=== PATIENT | female | born 1975 | race Caucasian/White ===

== ENCOUNTER 2023-05-14 17:53 | Inpatient (IN) ==
[2023-05-14] MEDS ORDERED: SODIUM CHLORIDE 0.9% 1000ML 1,000 ML IV SCH (19:15)
[2023-05-14] MEDS ORDERED: MAGNESIUM SULFATE / D5W 1 GM/100 ML BAG IV STA ×2 (19:30→20:23)
[2023-05-14 19:45] LABS: Basophils # (auto) 0.05 K/uL (0-0.2); Basophils % (auto) 0.8 %; Eosinophils # (auto) 0.05 K/uL (0-0.50); Eosinophils % (auto) 0.8 %; Hematocrit (blood only) 31.9 % (37.0-47.0); Hemoglobin 11.3 g/dl (12.0-16.0); Immature Granulocytes # (auto) 0.01 K/uL (0.01-0.20); Immature Granulocytes % (auto) 0.2 %; Lymphocytes # (auto) 1.35 K/uL (1.2-3.4); Lymphocytes % (auto) 22.4 %; Mean Corpuscular Hemoglobin 33.4 pg (25.0-34.0); Mean Corpuscular Hgb Conc 35.4 g/dL (32.0-36.0); Mean Corpuscular Volume 94.4 fL (80.0-100.0); Mean Platelet Volume 9.9 fL (9.4-12.4); Neutrophils # (auto) 3.66 K/uL (1.40-6.50); Neutrophils % (auto) 60.8 %; Platelet Count 152 K/uL (130-400); RDW Coefficient of Variation 11.9 % (11.5-14.5); RDW Standard Deviation 41.2 fL (36.4-46.3); Red Blood Count 3.38 M/uL (4.20-5.40); White Blood Count 6.02 K/ul (4.8-10.8)
[2023-05-14 20:02] LABS: Albumin Globulin Ratio 1.6 (0.9-2); Albumin Level 4.5 gm/dl (3.4-5.0); BUN Creatinine Ratio 15.8 (10-20); Bilirubin,Total 1.3 mg/dl (0.2-1.0); Calcium 9.1 mg/dl (8.6-10.3); Creatinine Clr Calc Pharmacy 53.9 ml/min; Est GFR (African American) 76.2 ml/min; Est GFR (Non-African American) 65.8 ml/min; Globulin 2.8 gm/dl (2.5-4.0); Magnesium 1.5 mg/dl (1.7-2.4); Potassium 3.1 mmol/L (3.5-5.1); Total Protein 7.3 gm/dl (6.0-8.3)
[2023-05-14] MEDS ORDERED: POTASSIUM CHLORIDE CRTAB 20 MEQ TABCR PO STA (20:09)
[2023-05-14 20:17] LABS: Prothrombin Time 11.3 Seconds (9.0-12.0)
[2023-05-14] MEDS ORDERED: OPTIRAY 320 100ml IV ONE (20:30)
--- NOTE | 2023-05-14 20:58 | Emergency Department Note ---
Impression & Plan Hallucinations, Alcohol withdrawal, Alcohol abuse, Hypokalemia, Hypomagnesemia, Prolonged QT interval ED Provider Note ED Provider Note NAME: WILL BOLIVAR AGE:48 SEX: Female : 1975 ARRIVES VIA: EMS INFORMANT: Patient ED PROVIDER(s): Janeth Berg DO CHIEF COMPLAINT: Hallucination HPI: This is a 48-year-old female sent from [facility] rehab facility for evaluation of hallucinations and possible mental health admission. Patient has been at [facility] for several days for rehab from alcohol abuse. Staff there state patient began having hallucinations but these seem more pronounced in the evening and at night. Patient states she has a prior history of hallucinations from alcohol withdrawal as previously medically admitted. No history of withdrawal related seizures. Patient does not know what medications she is currently being given there. Patient did have active hallucinations during my interview with the patient although she does answer most questions appropriately. Patient denied any fall, and denies any recent illness. She denies SI and HI, and does admit to depression. PAST MEDICAL HISTORY:See Below PAST SURGICAL HISTORY:See Below FAMILY HISTORY:See Below SOCIAL HISTORY:See Below HOME MEDICATIONS:See Below ALLERGIES:See Below VITALS:See Below PHYSICAL EXAMINATION: GENERAL: alert, well appearing, well nourished, no distress, non-toxic EYE EXAM: normal conjunctiva, PERRL and EOM's grossly intact OROPHARYNX: no exudate, no erythema, lips, buccal mucosa, and tongue normal and mucous membranes are moist NECK: supple, no nuchal rigidity, no adenopathy, non-tender LUNGS: Clear to auscultation. Normal chest wall mechanics, no w/r/r HEART: no murmurs, S1 normal and S2 normal ABDOMEN: abdomen soft, non-tender, normo-active bowel sounds, no masses, no rebound or guarding. BACK: Back is symmetrical on inspection and there is no deformity, no midline tenderness, no CVA tenderness. SKIN: no rashes, petechiae, orbruising UPPER EXTREMITIES: upper extremities are grossly normal. FROM, nml pulses b/l. LOWER EXTREMITIES: No pitting edema. FROM, nml pulses b/l. NEURO EXAM: Normal sensorium although intermittently appears to be hallucinating, cranial nerves II-XII grossly intact, normal speech, no facial droop,nogross weakness of arms, no gross weakness of legs. Gross sensation intact. Tremors noted. Vital Signs: reviewed and remarkable Differential Diagnosis: Alcohol intoxication, alcohol withdrawal, DTs, electrolyte abnormality, VINICIO, ICH, occult fracture, medication ADR, as well as others were considered MEDICAL DECISION MAKING: This is a 48-year-old female with a history of alcohol abuse who was referred here from [facility] due to concern for increasing hallucinations despite treatment for her alcohol withdrawal at their facility. She was afebrile and vital signs stable and was noted to be having active hallucinations while here. No significant hypertension, tachycardia, or diaphoresis. She did have obvious tremors. Patient denied SI and HI and given her mention that she has had hallucinations previously during alcohol withdrawal, we proceeded with a medical evaluation first. Labs are drawn and sent, IV established, EKG performed at bedside and interpreted by me and patient started on IV fluids and monitored on telemetry. Patient was given IV magnesium after noting a prolonged QT on the EKG. Her magnesium in the labs was ultimately low as was her potassium. She was given additional potassium repletion. Patient given IV Valium with some improvement in her tremors and she was able to rest. Patient was sent for CT head, face, and abdomen and pelvis after finding several contusions on my exam that the patient cannot otherwise explain. These were reassuring. [facility] was uncomfortable treating her symptoms at this time as they felt they were worsening despite their usual medications. I suspect her symptoms are more likely related to alcohol withdrawal then an acute mental health crisis requiring inpatient psychiatric treatment. Patient discussed with [facility] for additional inpatient medical treatment for acute alcohol withdrawal. Consultation(s): 2137: Discussed with Dr. Taveras. ER Treatment Provided: See below Diagnostics Interpreted By Me: -ECG: Normal sinus at 70, normal axis, normal QRS, prolonged QT, nonspecific ST/T wave change -Cardiac Monitoring: An order was placed for continuous cardiac monitoring. The monitor shows a rate of 60 with normal sinus rhythm. -Laboratory studies: As stated above and show below. -Imaging studies: [] Triage Nursing Note Reviewed Prior/Outside Records Reviewed Past Med/Surg History Social History Smoking Status: Never smoker Feels Safe at Home: Yes Allergies Allergies Allergy/AdvReac Type Severity Reaction Status Date / Time celecoxib [From Celebrex] Allergy Rash Verified 05/14/23 18:56 Home Meds Home Medications Medication Instructions Recorded Confirmed acetaminophen 650 mg tablet 650 mg PO QID pain 05/14/23 05/14/23 clonidine HCl 0.1 mg tablet 0.1 mg PO TID PRN Anxiety 05/14/23 05/14/23 cyanocobalamin (vitamin B-12) 1,000 mcg PO DAILY 05/14/23 05/14/23 1,000 mcg tablet (Vitamin B-12) diazepam 10 mg tablet (Valium) 10 mg PO DIRECTED PRN 05/14/23 05/14/23 Withdrawal Symptoms dicyclomine 20 mg tablet 20 mg PO TID PRN Abdominal 05/14/23 05/14/23 Discomfort diphenhydramine HCl 25 mg capsule 25 mg PO Q6 PRN as directed 05/14/23 05/14/23 (Benadryl) folic acid 1 mg tablet 1 mg PO DAILY 05/14/23 05/14/23 haloperidol 2 mg tablet 1 mg PO TID 05/14/23 05/14/23 hydroxyzine pamoate 50 mg capsule 50 mg PO TID PRN Anxiety 05/14/23 05/14/23 (Vistaril) ibuprofen 600 mg tablet 600 mg PO DAILY PRN Pain 05/14/23 05/14/23 melatonin 5 mg tablet 5 mg PO HS PRN Sleep 05/14/23 05/14/23 multivitamin See Rx Instructions .Route .COMPLEX 05/14/23 05/14/23 norethindrone (contraceptive) 0.35 0.5 mg PO DAILY 05/14/23 05/14/23 mg tablet ondansetron HCl 8 mg tablet 8 mg PO TID PRN Nausea 05/14/23 05/14/23 pantoprazole 40 mg tablet,delayed 40 mg PO DAILY 05/14/23 05/14/23 release (Protonix) sertraline 50 mg tablet (Zoloft) 50 mg PO DAILY 05/14/23 05/14/23 thiamine HCl (vitamin B1) 100 mg 100 mg PO DAILY 05/14/23 05/14/23 tablet (Vitamin B-1) Results & Data (ED) Vital Signs Vital Signs - 24 hr 05/14/23 18:02 05/14/23 19:36 05/14/23 21:00 Temperature 36.7 C Temperature Source Skin Pulse Rate 85 67 Pulse Rate [Right Apical] 74 Pulse Rhythm Regular Pulse Rhythm [Right Apical] Pulse Strength Normal Respiratory Rate 20 16 Respiratory Effort / Characteristics Non-Labored Spontaneous Non-Labored Spontaneous Respiratory Depth Normal Normal Respiratory Pattern Regular Regular Blood Pressure 100/65 Blood Pressure [Right Arm] Blood Pressure Mean 76 Blood Pressure Mean [Right Arm] Pulse Oximetry 94 95 Oxygen Delivery Method Room Air Room Air Sepsis Recent Fever Within 48 Hours No Sepsis New/Unexplained Change in Mental Status N/A Sepsis Action Taken by Nursing No Action Required 05/14/23 21:28 05/14/23 23:30 05/14/23 23:56 Temperature Temperature Source Pulse Rate 58 L Pulse Rate [Right Apical] 70 Pulse Rhythm Pulse Rhythm [Right Apical] Regular Pulse Strength Respiratory Rate 17 Respiratory Effort / Characteristics Respiratory Depth Normal Respiratory Pattern Blood Pressure Blood Pressure [Right Arm] 118/83 113/74 Blood Pressure Mean Blood Pressure Mean [Right Arm] 94 87 Pulse Oximetry 97 Oxygen Delivery Method Room Air Sepsis Recent Fever Within 48 Hours Sepsis New/Unexplained Change in Mental Status Sepsis Action Taken by Nursing Laboratory Data 05/14/23 19:20 05/14/23 19:20 Lab Results 05/14/23 05/14/23 05/14/23 Range/Units 19:20 19:20 19:20 WBC 6.02 (4.8-10.8) K/ul RBC 3.38 L (4.20-5.40) M/uL Hgb 11.3 L (12.0-16.0) g/dl Hct 31.9 L (37.0-47.0) % MCV 94.4 (80.0-100.0) fL MCH 33.4 (25.0-34.0) pg MCHC 35.4 (32.0-36.0) g/dL RDW Std Deviation 41.2 (36.4-46.3) fL RDW Coeff of Edwina 11.9 (11.5-14.5) % Plt Count 152 (130-400) K/uL MPV 9.9 (9.4-12.4) fL Immature Gran % (Auto) 0.2 % Neut % (Auto) 60.8 % Lymph % (Auto) 22.4 % [place] % (Auto) 15.0 % Eos % (Auto) 0.8 % Baso % (Auto) 0.8 % Neut # (Auto) 3.66 (1.40-6.50) K/uL Lymph # (Auto) 1.35 (1.2-3.4) K/uL [place] # (Auto) 0.90 H (0.11-0.59) K/uL Eos # (Auto) 0.05 (0-0.50) K/uL Baso # (Auto) 0.05 (0-0.2) K/uL Immature Gran # (Auto) 0.01 (0.01-0.20) K/uL PT 11.3 (9.0-12.0) Seconds INR 1.0 (0.9-1.1) Sodium 133 L (136-145) mmol/L Potassium 3.1 L (3.5-5.1) mmol/L Chloride 99 (98-107) mmol/L Carbon Dioxide 21 (21-32) mmol/L Anion Gap 13 H (3-11) BUN 16 (6-23) mg/dl Creatinine 1.01 (0.6-1.2) mg/dl Est Cr Clr Drug Dosing 53.9 ml/min Est GFR ( Amer) 76.2 ml/min Est GFR (Non-Af Amer) 65.8 ml/min BUN/Creatinine Ratio 15.8 (10-20) Glucose 80 (70-99(Fasting)) mg/dl Calcium 9.1 (8.6-10.3) mg/dl Magnesium 1.5 L (1.7-2.4) mg/dl Total Bilirubin 1.3 H (0.2-1.0) mg/dl AST 75 H (13-39) U/L ALT 37 (7-52) U/L Alkaline Phosphatase 34 (34-104) U/L Total Protein 7.3 (6.0-8.3) gm/dl Albumin 4.5 (3.4-5.0) gm/dl Globulin 2.8 (2.5-4.0) gm/dl Albumin/Globulin Ratio 1.6 (0.9-2) Lipase 23 (11-82) U/L TSH (0.300-4.500) uIu/ml Urine Color Urine Appearance (Clear) Urine pH (4.5-7.5) Ur Specific [place] (1.000-1.030) Urine Protein (Negative) Urine Glucose (UA) (Negative) Urine Ketones (Negative) Urine Blood (Negative) Urine Nitrite (Negative) Urine Bilirubin (Negative) Urine Urobilinogen (Negative) Ur Leukocyte Esterase (Negative) Urine WBC (Auto) (0-5) /hpf Urine RBC (Auto) (0-4) /hpf U Hyaline Cast (Auto) (0-5) /lpf U Epithel Cells (Auto) (0-5) /lpf Urine Bacteria (Auto) (Negative) Urine Opiates Screen (Neg) Ur Methadone, Qual (Neg) Urine Barbiturates (Neg) Ur Phencyclidine (PCP) (Neg) U Amphetamin/Meth Scrn (Neg) MDMA (Ecstasy) Screen (Neg) U Benzodiazepines Scrn (Neg) Ur Cocaine Metabolite (Neg) U Marijuana (THC) Screen (Neg) SARS-CoV-2 (PCR) (Negative) Influenza Type A (PCR) (Neg) Influenza Type B (PCR) (Neg) RSV (RT-PCR) (Neg) 05/14/23 05/14/23 05/14/23 Range/Units 19:20 21:38 23:03 WBC (4.8-10.8) K/ul RBC (4.20-5.40) M/uL Hgb (12.0-16.0) g/dl Hct (37.0-47.0) % MCV (80.0-100.0) fL MCH (25.0-34.0) pg MCHC (32.0-36.0) g/dL RDW Std Deviation (36.4-46.3) fL RDW Coeff of Edwina (11.5-14.5) % Plt Count (130-400) K/uL MPV (9.4-12.4) fL Immature Gran % (Auto) % Neut % (Auto) % Lymph % (Auto) % [place] % (Auto) % Eos % (Auto) % Baso % (Auto) % Neut # (Auto) (1.40-6.50) K/uL Lymph # (Auto) (1.2-3.4) K/uL [place] # (Auto) (0.11-0.59) K/uL Eos # (Auto) (0-0.50) K/uL Baso # (Auto) (0-0.2) K/uL Immature Gran # (Auto) (0.01-0.20) K/uL PT (9.0-12.0) Seconds INR (0.9-1.1) Sodium (136-145) mmol/L Potassium (3.5-5.1) mmol/L Chloride (98-107) mmol/L Carbon Dioxide (21-32) mmol/L Anion Gap (3-11) BUN (6-23) mg/dl Creatinine (0.6-1.2) mg/dl Est Cr Clr Drug Dosing ml/min Est GFR ( Amer) ml/min Est GFR (Non-Af Amer) ml/min BUN/Creatinine Ratio (10-20) Glucose (70-99(Fasting)) mg/dl Calcium (8.6-10.3) mg/dl Magnesium (1.7-2.4) mg/dl Total Bilirubin (0.2-1.0) mg/dl AST (13-39) U/L ALT (7-52) U/L Alkaline Phosphatase (34-104) U/L Total Protein (6.0-8.3) gm/dl Albumin (3.4-5.0) gm/dl Globulin (2.5-4.0) gm/dl Albumin/Globulin Ratio (0.9-2) Lipase (11-82) U/L TSH 1.569 (0.300-4.500) uIu/ml Urine Color Urine Appearance (Clear) Urine pH (4.5-7.5) Ur Specific [place] (1.000-1.030) Urine Protein (Negative) Urine Glucose (UA) (Negative) Urine Ketones (Negative) Urine Blood (Negative) Urine Nitrite (Negative) Urine Bilirubin (Negative) Urine Urobilinogen (Negative) Ur Leukocyte Esterase (Negative) Urine WBC (Auto) (0-5) /hpf Urine RBC (Auto) (0-4) /hpf U Hyaline Cast (Auto) (0-5) /lpf U Epithel Cells (Auto) (0-5) /lpf Urine Bacteria (Auto) (Negative) Urine Opiates Screen Neg (Neg) Ur Methadone, Qual Neg (Neg) Urine Barbiturates Neg (Neg) Ur Phencyclidine (PCP) Neg (Neg) U Amphetamin/Meth Scrn Neg (Neg) MDMA (Ecstasy) Screen Neg (Neg) U Benzodiazepines Scrn Pos H (Neg) Ur Cocaine Metabolite Neg (Neg) U Marijuana (THC) Screen Neg (Neg) SARS-CoV-2 (PCR) NEGATIVE (Negative) Influenza Type A (PCR) Negative (Neg) Influenza Type B (PCR) Negative (Neg) RSV (RT-PCR) Negative (Neg) 05/14/23 Range/Units 23:03 WBC (4.8-10.8) K/ul RBC (4.20-5.40) M/uL Hgb (12.0-16.0) g/dl Hct (37.0-47.0) % MCV (80.0-100.0) fL MCH (25.0-34.0) pg MCHC (32.0-36.0) g/dL RDW Std Deviation (36.4-46.3) fL RDW Coeff of Edwina (11.5-14.5) % Plt Count (130-400) K/uL MPV (9.4-12.4) fL Immature Gran % (Auto) % Neut % (Auto) % Lymph % (Auto) % [place] % (Auto) % Eos % (Auto) % Baso % (Auto) % Neut # (Auto) (1.40-6.50) K/uL Lymph # (Auto) (1.2-3.4) K/uL [place] # (Auto) (0.11-0.59) K/uL Eos # (Auto) (0-0.50) K/uL Baso # (Auto) (0-0.2) K/uL Immature Gran # (Auto) (0.01-0.20) K/uL PT (9.0-12.0) Seconds INR (0.9-1.1) Sodium (136-145) mmol/L Potassium (3.5-5.1) mmol/L Chloride (98-107) mmol/L Carbon Dioxide (21-32) mmol/L Anion Gap (3-11) BUN (6-23) mg/dl Creatinine (0.6-1.2) mg/dl Est Cr Clr Drug Dosing ml/min Est GFR ( Amer) ml/min Est GFR (Non-Af Amer) ml/min BUN/Creatinine Ratio (10-20) Glucose (70-99(Fasting)) mg/dl Calcium (8.6-10.3) mg/dl Magnesium (1.7-2.4) mg/dl Total Bilirubin (0.2-1.0) mg/dl AST (13-39) U/L ALT (7-52) U/L Alkaline Phosphatase (34-104) U/L Total Protein (6.0-8.3) gm/dl Albumin (3.4-5.0) gm/dl Globulin (2.5-4.0) gm/dl Albumin/Globulin Ratio (0.9-2) Lipase (11-82) U/L TSH (0.300-4.500) uIu/ml Urine Color Yellow Urine Appearance Clear (Clear) Urine pH 5.5 (4.5-7.5) Ur Specific [place] 1.022 (1.000-1.030) Urine Protein Negative (Negative) Urine Glucose (UA) Negative (Negative) Urine Ketones Negative (Negative) Urine Blood Trace H (Negative) Urine Nitrite Negative (Negative) Urine Bilirubin Negative (Negative) Urine Urobilinogen Negative (Negative) Ur Leukocyte Esterase Negative (Negative) Urine WBC (Auto) 1-5 (0-5) /hpf Urine RBC (Auto) 0-4 (0-4) /hpf U Hyaline Cast (Auto) 0 (0-5) /lpf U Epithel Cells (Auto) 5-10 H (0-5) /lpf Urine Bacteria (Auto) Negative (Negative) Urine Opiates Screen (Neg) Ur Methadone, Qual (Neg) Urine Barbiturates (Neg) Ur Phencyclidine (PCP) (Neg) U Amphetamin/Meth Scrn (Neg) MDMA (Ecstasy) Screen (Neg) U Benzodiazepines Scrn (Neg) Ur Cocaine Metabolite (Neg) U Marijuana (THC) Screen (Neg) SARS-CoV-2 (PCR) (Negative) Influenza Type A (PCR) (Neg) Influenza Type B (PCR) (Neg) RSV (RT-PCR) (Neg) Administered Medications Potassium Chloride/Sodium Chloride (Normal Saline W/20 Meq Kcl) 20 meq in 1,000 mls @ 100 mls/hr IV .Q10H STA; Protocol Stop: 05/15/23 07:50 Last Admin: 05/14/23 22:17 Dose: 75 mls/hr Documented By: KJS Discontinued Medications Diazepam (Diazepam 5 Mg/Ml Inj 10ml Vial) 2 mg IV NOW STA Stop: 05/14/23 19:31 Last Admin: 05/14/23 19:46 Dose: 2 mg Documented By: MERLE Gabapentin (Gabapentin 600 Mg Tab) 1,200 mg PO NOW STA Stop: 05/14/23 22:35 Last Admin: 05/14/23 23:16 Dose: 1,200 mg Documented By: JULY Sodium Chloride (Nss 1000ml) 1,000 mls @ 250 mls/hr IV .Q4H ALDA Stop: 06/13/23 19:14 Last Infusion: 05/14/23 22:16 Dose: 0 mls/hr Documented By: Admin: 05/14/23 19:33 Dose: 250 mls/hr Documented By: MERLE Magnesium Sulfate/Dextrose (Magnesium Sulfate / D5w) 1 gm in 100 mls @ 100 mls/hr IV NOW STA Stop: 05/14/23 20:29 Last Infusion: 05/14/23 20:52 Dose: 0 mls/hr Documented By: Admin: 05/14/23 19:45 Dose: 100 mls/hr Documented By: MERLE Magnesium Sulfate/Dextrose (Magnesium Sulfate / D5w) 1 gm in 100 mls @ 100 mls/hr IV NOW STA Stop: 05/14/23 21:22 Last Infusion: 05/14/23 22:06 Dose: 0 mls/hr Documented By: Admin: 05/14/23 20:56 Dose: 100 mls/hr Documented By: MERLE Thiamine HCl 100 mg/ Syringe 10 mls @ 2 mls/min IV NOW STA Stop: 05/14/23 21:54 Last Admin: 05/14/23 22:13 Dose: 2 mls/min Documented By: MERLE Ioversol (Optiray 320 100ml) 95 ml IV ONCE ONE Stop: 05/14/23 20:31 Last Admin: 05/14/23 20:30 Dose: 95 ml Documented By: NICHOLE Lorazepam (Lorazepam 2 Mg/1 Ml Vial) 3 mg IV ONCE PRN; Protocol PRN Reason: EtOH Withdrawal AWSS Score 10+ Last Admin: 05/14/23 23:17 Dose: 3 mg Documented By: JULY Potassium Chloride (Potassium Chloride Crtab 20 Meq Tabcr) 40 meq PO NOW STA Stop: 05/14/23 20:10 Last Admin: 05/14/23 20:56 Dose: 40 meq Documented By: KJS Imaging Data Radiologist's Impression: Abdomen/Pelvis CT 05/14/23 19:12 Exam(s): CT ABDOMEN + PELVIS With Contrast IV Amt: 95ml EXAM: CT Abdomen and Pelvis With Intravenous Contrast CLINICAL HISTORY: Reason for exam: etoh, left flank pain/bruising. TECHNIQUE: Axial computed tomography images of the abdomen and pelvis with intravenous contrast. CTDI is 11.71 mGy and DLP is 206.82 mGy-cm. Automated exposure control was utilized for the study. A dose lowering technique was utilized adhering to the principles of ALARA. CONTRAST: Patient received 95ml of IV contrast COMPARISON: None. FINDINGS: Lung bases: Bilateral dependent atelectasis. ABDOMEN: Liver: Unremarkable. No mass. Gallbladder and bile ducts: Unremarkable. No calcified stones. No ductal dilation. Pancreas: Unremarkable. No mass. No ductal dilation. Spleen: Unremarkable. No splenomegaly. Adrenals: Unremarkable. No mass. Kidneys and ureters: Unremarkable. No solid mass. No hydronephrosis. Stomach and bowel: Unremarkable. No obstruction. No mucosal thickening. PELVIS: Appendix: No findings to suggest acute appendicitis. Bladder: Unremarkable. No mass. Reproductive: Unremarkable as visualized. ABDOMEN and PELVIS: Intraperitoneal space: Unremarkable. No free air. No significant fluid collection. Bones/joints: No acute fracture. No dislocation. Soft tissues: Unremarkable. Vasculature: Unremarkable. No abdominal aortic aneurysm. Lymph nodes: Unremarkable. No enlarged lymph nodes. IMPRESSION: No acute traumatic abnormality in the abdomen or pelvis. Electronically signed by: Daryl Jackson MD 05/14/23 21:[address] 05/14/23 19:12 Exam(s): CT FACIAL Without Contrast EXAM: CT Maxillofacial Without Intravenous Contrast CLINICAL HISTORY: Reason for exam: fall/facial bruising/etoh. TECHNIQUE: Axial computed tomography images of the face without intravenous contrast. CTDI is 37.69 mGy and DLP is 624.41 mGy-cm. Automated exposure control was utilized for the study. A dose lowering technique was utilized adhering to the principles of ALARA. COMPARISON: None. FINDINGS: Bones/joints: No acute fracture. Degenerative change in the spine. Soft tissues: Unremarkable. Orbits: Unremarkable. Sinuses: Unremarkable. No air-fluid levels. IMPRESSION: No acute facial fracture. Electronically signed by: Daryl Jackson MD 05/14/23 21:[address] 05/14/23 19:12 Exam(s): CT HEAD Without Contrast EXAM: CT Head Without Intravenous Contrast CLINICAL HISTORY: Reason for exam: facial bruising/fall/etoh. TECHNIQUE: Axial computed tomography images of the head/brain without intravenous contrast. CTDI is 14.52 mGy and DLP is 788.21 mGy-cm. Automated exposure control was utilized for the study. A dose lowering technique was utilized adhering to the principles of ALARA. COMPARISON: None. FINDINGS: Brain: Posterior fossa jese cisterna magna versus arachnoid cyst. No hemorrhage. No significant white matter disease. Ventricles: Unremarkable. No ventriculomegaly. Bones/joints: Unremarkable. No acute fracture. Soft tissues: Unremarkable. Sinuses: Unremarkable as visualized. Mastoid air cells: Unremarkable as visualized. No mastoid effusion. IMPRESSION: No intracranial hemorrhage or other acute intracranial abnormality. Electronically signed by: Daryl Jackson MD 05/14/23 21:00 PM Venous Doppler Study 05/14/23 22:29 Exam(s): US VENOUS LEFT LOWER EXTREMITY EXAM: US Duplex Left Lower Extremity Veins CLINICAL HISTORY: Reason for exam: pain. TECHNIQUE: Real-time duplex ultrasound scan of the left lower extremity veins integrating B-mode two-dimensional vascular structure, Doppler spectral analysis, color flow Doppler imaging and compression. COMPARISON: None. FINDINGS: Deep veins: Unremarkable. No DVT in the visualized common femoral, femoral, proximal deep femoral or popliteal veins. The veins demonstrate normal color flow, are normally compressible, with normal phasic flow and/or augmentation response. Superficial veins: Unremarkable. No thrombus in the visualized great saphenous vein. Soft tissues: No acute findings. No popliteal cyst. IMPRESSION: No evidence of deep vein thrombosis in the left lower extremity. Electronically signed by: Daryl Jackson MD 05/14/23 23:32 PM Discharge Plan Visit Data Chief Complaint: Mental Health Evaluation Stated Complaint: [facility] ED Provider: Janeth Berg Discharge Problem: Hallucinations, Alcohol withdrawal, Alcohol abuse, Hypokalemia, Hypomagnesemia, Prolonged QT interval Forms Stand Alone Forms: [facility] [employer], Suicide Prevention Resources Prescriptions Prescriptions: No Action multivitamin Tablet See Rx Instructions .ROUTE .COMPLEX Rx Instructions: take as directed at facility clonidine HCl 0.1 mg Tablet 0.1 mg PO TID PRN (Reason: Anxiety) Rx Instructions: Anxiety/Restlessness HR >/=70 and BP >100/70 ondansetron HCl [Zofran] 8 mg Tablet 8 mg PO TID PRN (Reason: Nausea) cyanocobalamin (vitamin B-12) [Vitamin B-12] 1,000 mcg Tablet 1,000 mcg PO DAILY thiamine HCl (vitamin B1) [Vitamin B-1] 100 mg Tablet 100 mg PO DAILY hydroxyzine pamoate [Vistaril] 50 mg Capsule 50 mg PO TID PRN (Reason: Anxiety) acetaminophen 650 mg Tablet 650 mg PO QID dicyclomine [Bentyl] 20 mg Tablet 20 mg PO TID PRN (Reason: Abdominal Discomfort) pantoprazole [Protonix] 40 mg Tablet,Delayed Release (Dr/Ec) 40 mg PO DAILY diphenhydramine HCl [Benadryl] 25 mg Capsule 25 mg PO Q6 PRN (Reason: as directed) Rx Instructions: Take 1-2 capsules PO q 6 hours as needed per facility. folic acid 1 mg Tablet 1 mg PO DAILY diazepam [Valium] 10 mg Tablet 10 mg PO DIRECTED PRN (Reason: Withdrawal Symptoms) Rx Instructions: PRN CIWA > or 8 , d/c after detox ibuprofen 600 mg Tablet 600 mg PO DAILY PRN (Reason: Pain) norethindrone (contraceptive) 0.35 mg Tablet 0.5 mg PO DAILY haloperidol [Haldol] 2 mg Tablet 1 mg PO TID Rx Instructions: Take 1mg PO TID x 2 day started 05/13/23 @ 2100, last dose to be given 05/15/23 @ 1200. sertraline [Zoloft] 50 mg Tablet 50 mg PO DAILY melatonin 5 mg Tablet 5 mg PO HS PRN (Reason: Sleep) Referrals Referrals: PCP,NO [Primary Care Provider] -
--- NOTE | 2023-05-14 21:01 | CT Scan Report ---
Exam(s): CT HEAD Without Contrast EXAM: CT Head Without Intravenous Contrast CLINICAL HISTORY: Reason for exam: facial bruising/fall/etoh. TECHNIQUE: Axial computed tomography images of the head/brain without intravenous contrast. CTDI is 14.52 mGy and DLP is 788.21 mGy-cm. Automated exposure control was utilized for the study. A dose lowering technique was utilized adhering to the principles of ALARA. COMPARISON: None. FINDINGS: Brain: Posterior fossa jese cisterna magna versus arachnoid cyst. No hemorrhage. No significant white matter disease. Ventricles: Unremarkable. No ventriculomegaly. Bones/joints: Unremarkable. No acute fracture. Soft tissues: Unremarkable. Sinuses: Unremarkable as visualized. Mastoid air cells: Unremarkable as visualized. No mastoid effusion. IMPRESSION: No intracranial hemorrhage or other acute intracranial abnormality. Electronically signed by: Daryl Jackson MD 05/14/23 21:00 PM
--- NOTE | 2023-05-14 21:03 | CT Scan Report ---
Exam(s): CT FACIAL Without Contrast EXAM: CT Maxillofacial Without Intravenous Contrast CLINICAL HISTORY: Reason for exam: fall/facial bruising/etoh. TECHNIQUE: Axial computed tomography images of the face without intravenous contrast. CTDI is 37.69 mGy and DLP is 624.41 mGy-cm. Automated exposure control was utilized for the study. A dose lowering technique was utilized adhering to the principles of ALARA. COMPARISON: None. FINDINGS: Bones/joints: No acute fracture. Degenerative change in the spine. Soft tissues: Unremarkable. Orbits: Unremarkable. Sinuses: Unremarkable. No air-fluid levels. IMPRESSION: No acute facial fracture. Electronically signed by: Daryl Jackson MD 05/14/23 21:03 PM
--- NOTE | 2023-05-14 21:12 | CT Scan Report ---
Exam(s): CT ABDOMEN + PELVIS With Contrast IV Amt: 95ml EXAM: CT Abdomen and Pelvis With Intravenous Contrast CLINICAL HISTORY: Reason for exam: etoh, left flank pain/bruising. TECHNIQUE: Axial computed tomography images of the abdomen and pelvis with intravenous contrast. CTDI is 11.71 mGy and DLP is 206.82 mGy-cm. Automated exposure control was utilized for the study. A dose lowering technique was utilized adhering to the principles of ALARA. CONTRAST: Patient received 95ml of IV contrast COMPARISON: None. FINDINGS: Lung bases: Bilateral dependent atelectasis. ABDOMEN: Liver: Unremarkable. No mass. Gallbladder and bile ducts: Unremarkable. No calcified stones. No ductal dilation. Pancreas: Unremarkable. No mass. No ductal dilation. Spleen: Unremarkable. No splenomegaly. Adrenals: Unremarkable. No mass. Kidneys and ureters: Unremarkable. No solid mass. No hydronephrosis. Stomach and bowel: Unremarkable. No obstruction. No mucosal thickening. PELVIS: Appendix: No findings to suggest acute appendicitis. Bladder: Unremarkable. No mass. Reproductive: Unremarkable as visualized. ABDOMEN and PELVIS: Intraperitoneal space: Unremarkable. No free air. No significant fluid collection. Bones/joints: No acute fracture. No dislocation. Soft tissues: Unremarkable. Vasculature: Unremarkable. No abdominal aortic aneurysm. Lymph nodes: Unremarkable. No enlarged lymph nodes. IMPRESSION: No acute traumatic abnormality in the abdomen or pelvis. Electronically signed by: Daryl Jackson MD 05/14/23 21:11 PM
[2023-05-14] MEDS ORDERED: THIAMINE HCL 100 MG in SYRINGE 9 ML IV STA (21:50)
[2023-05-14] MEDS ORDERED: NSS + 20MEQ KCL 20 MEQ/1,000 ML BAG IV STA (21:51)
--- NOTE | 2023-05-14 22:15 | History & Physical Report ---
Date of Service May 14, 2023 Assessment & Plan (1) Alcohol withdrawal: Plan: HTN, BP on the lower side GERD on PPI chronic back pain Left thigh pain rule out bony injury given recent fall as per patient account anxiety/mood disorder Anemia, unknown duration PCU ALDO S, DT precautions Hold home amlodipine for now given borderline BP Plain x-ray left femur Re: Pain DVT prophylaxis. SCDs for now until bony injury ruled out from left femur x-ray Full code Text document was generated using [employer] voice recognition software. It may contain grammatical or spelling errors. Kindly contact undersigned for clarification of any documentation item in question. History of Present Illness Chief Complaint: Worsening hallucinations as per records Primary Care Provider: Dr. Gandhi from [facility] History obtained from patient and records. Medical history significant for HTN, GERD, chronic back pain, anxiety/mood disorder, alcohol abuse. Patient is a resident of [facility] who was admitted at the local [facility] last week for voluntary alcohol rehab. Last EtOH drink was last week prior to [facility] admission. During stay at the [facility], patient with increasing hallucinations. Seeing her and dog in her room. Patient incompletely responsive to as needed Valium given at the facility. Patient denies headache, chest pain, SOB, abdominal pain. Complaining of left upper thigh pain. Possible fall as per patient. Patient brought to the ER for evaluation. Medical History as above Surgical History : None Family History : Heart disease,, DM, alcoholism Personal/Social history : Non-smoker, alcohol abuse, currently unemployed Allergies Allergy/AdvReac Type Severity Reaction Status Date / Time celecoxib [From Celebrex] Allergy Rash Verified 05/14/23 18:56 Home Medications Medication Instructions Recorded Confirmed Type acetaminophen 650 mg tablet 650 mg PO QID pain 05/14/23 05/14/23 History clonidine HCl 0.1 mg tablet 0.1 mg PO TID PRN Anxiety 05/14/23 05/14/23 History cyanocobalamin (vitamin B-12) 1,000 mcg PO DAILY 05/14/23 05/14/23 History 1,000 mcg tablet (Vitamin B-12) diazepam 10 mg tablet (Valium) 10 mg PO DIRECTED PRN 05/14/23 05/14/23 History Withdrawal Symptoms dicyclomine 20 mg tablet 20 mg PO TID PRN Abdominal 05/14/23 05/14/23 History Discomfort diphenhydramine HCl 25 mg capsule 25 mg PO Q6 PRN as directed 05/14/23 05/14/23 History (Benadryl) folic acid 1 mg tablet 1 mg PO DAILY 05/14/23 05/14/23 History haloperidol 2 mg tablet 1 mg PO TID 05/14/23 05/14/23 History hydroxyzine pamoate 50 mg capsule 50 mg PO TID PRN Anxiety 05/14/23 05/14/23 History (Vistaril) ibuprofen 600 mg tablet 600 mg PO DAILY PRN Pain 05/14/23 05/14/23 History melatonin 5 mg tablet 5 mg PO HS PRN Sleep 05/14/23 05/14/23 History multivitamin See Rx Instructions .Route .COMPLEX 05/14/23 05/14/23 History norethindrone (contraceptive) 0.35 0.5 mg PO DAILY 05/14/23 05/14/23 History mg tablet ondansetron HCl 8 mg tablet 8 mg PO TID PRN Nausea 05/14/23 05/14/23 History pantoprazole 40 mg tablet,delayed 40 mg PO DAILY 05/14/23 05/14/23 History release (Protonix) sertraline 50 mg tablet (Zoloft) 50 mg PO DAILY 05/14/23 05/14/23 History thiamine HCl (vitamin B1) 100 mg 100 mg PO DAILY 05/14/23 05/14/23 History tablet (Vitamin B-1) Past Med/Surg History Social History Smoking Status: Never smoker Hx Alcohol Use: Yes Communication Ability Comment: unable to answer Beliefs That Will Affect Care: None Current Living Situation Comment: unable to answer Feels Safe at Home: Declines to Answer Review of Systems Review of Systems: As per HPI, all other systems reviewed and negative Physical Exam Physical Exam: GENERAL: Slightly uncomfortable, tremulous, oriented to month and year, no respiratory distress SKIN: Normal color, warm HEENT: [place] palpebral conjunctivae, no ptosis, dry buccal mucosa NECK : Supple, no tenderness CHEST : CTA, no tenderness HEART : RRR, no obvious murmurs ABDOMEN: no distention, nontender EXTREMITIES : No LE swelling, minimal left thigh tenderness, no other conspicuous deformities noted NEUROLOGIC : Oriented to month and year, no facial asymmetry, tremulous, gait and stance not assessed Results & Data Results & Data Vital Signs (Past 12 Hours) Vital Signs Temp Pulse Pulse Resp BP BP Pulse Ox 05/14/23 21:28 118/83 05/14/23 21:00 74 16 95 05/14/23 19:36 67 05/14/23 18:02 36.7 C 85 20 100/65 94 O2 Del Method 05/14/23 21:28 05/14/23 21:00 Room Air 05/14/23 19:36 05/14/23 18:02 Room Air Laboratory Results Laboratory Results WBC 6.02 K/ul (4.8-10.8) 05/14/23 19:20 RBC 3.38 M/uL (4.20-5.40) L 05/14/23 19:20 Hgb 11.3 g/dl (12.0-16.0) L 05/14/23 19:20 Hct 31.9 % (37.0-47.0) L 05/14/23 19:20 MCV 94.4 fL (80.0-100.0) 05/14/23 19:20 MCH 33.4 pg (25.0-34.0) 05/14/23 19:20 MCHC 35.4 g/dL (32.0-36.0) 05/14/23 19:20 RDW Std Deviation 41.2 fL (36.4-46.3) 05/14/23 19:20 RDW Coeff of Edwina 11.9 % (11.5-14.5) 05/14/23 19:20 Plt Count 152 K/uL (130-400) 05/14/23 19:20 MPV 9.9 fL (9.4-12.4) 05/14/23 19:20 Immature Gran % (Auto) 0.2 % 05/14/23 19:20 Neut % (Auto) 60.8 % 05/14/23 19:20 Lymph % (Auto) 22.4 % 05/14/23 19:20 [place] % (Auto) 15.0 % 05/14/23 19:20 Eos % (Auto) 0.8 % 05/14/23 19:20 Baso % (Auto) 0.8 % 05/14/23 19:20 Neut # (Auto) 3.66 K/uL (1.40-6.50) 05/14/23 19:20 Lymph # (Auto) 1.35 K/uL (1.2-3.4) 05/14/23 19:20 [place] # (Auto) 0.90 K/uL (0.11-0.59) H 05/14/23 19:20 Eos # (Auto) 0.05 K/uL (0-0.50) 05/14/23 19:20 Baso # (Auto) 0.05 K/uL (0-0.2) 05/14/23 19:20 Immature Gran # (Auto) 0.01 K/uL (0.01-0.20) 05/14/23 19:20 PT 11.3 Seconds (9.0-12.0) 05/14/23 19:20 INR 1.0 (0.9-1.1) 05/14/23 19:20 Sodium 133 mmol/L (136-145) L 05/14/23 19:20 Potassium 3.1 mmol/L (3.5-5.1) L 05/14/23 19:20 Chloride 99 mmol/L (98-107) 05/14/23 19:20 Carbon Dioxide 21 mmol/L (21-32) 05/14/23 19:20 Anion Gap 13 (3-11) H 05/14/23 19:20 BUN 16 mg/dl (6-23) 05/14/23 19:20 Creatinine 1.01 mg/dl (0.6-1.2) 05/14/23 19:20 Est Cr Clr Drug Dosing 53.9 ml/min 05/14/23 19:20 Est GFR ( Amer) 76.2 ml/min 05/14/23 19:20 Est GFR (Non-Af Amer) 65.8 ml/min 05/14/23 19:20 BUN/Creatinine Ratio 15.8 (10-20) 05/14/23 19:20 Glucose 80 mg/dl (70-99(Fasting)) 05/14/23 19:20 Calcium 9.1 mg/dl (8.6-10.3) 05/14/23 19:20 Magnesium 1.5 mg/dl (1.7-2.4) L 05/14/23 19:20 Total Bilirubin 1.3 mg/dl (0.2-1.0) H 05/14/23 19:20 AST 75 U/L (13-39) H 05/14/23 19:20 ALT 37 U/L (7-52) 05/14/23 19:20 Alkaline Phosphatase 34 U/L (34-104) 05/14/23 19:20 Total Protein 7.3 gm/dl (6.0-8.3) 05/14/23 19:20 Albumin 4.5 gm/dl (3.4-5.0) 05/14/23 19:20 Globulin 2.8 gm/dl (2.5-4.0) 05/14/23 19:20 Albumin/Globulin Ratio 1.6 (0.9-2) 05/14/23 19:20 Lipase 23 U/L (11-82) 05/14/23 19:20 TSH 1.569 uIu/ml (0.300-4.500) 05/14/23 19:20 Impressions Abdomen/Pelvis CT 05/14/23 19:12 Exam(s): CT ABDOMEN + PELVIS With Contrast IV Amt: 95ml EXAM: CT Abdomen and Pelvis With Intravenous Contrast CLINICAL HISTORY: Reason for exam: etoh, left flank pain/bruising. TECHNIQUE: Axial computed tomography images of the abdomen and pelvis with intravenous contrast. CTDI is 11.71 mGy and DLP is 206.82 mGy-cm. Automated exposure control was utilized for the study. A dose lowering technique was utilized adhering to the principles of ALARA. CONTRAST: Patient received 95ml of IV contrast COMPARISON: None. FINDINGS: Lung bases: Bilateral dependent atelectasis. ABDOMEN: Liver: Unremarkable. No mass. Gallbladder and bile ducts: Unremarkable. No calcified stones. No ductal dilation. Pancreas: Unremarkable. No mass. No ductal dilation. Spleen: Unremarkable. No splenomegaly. Adrenals: Unremarkable. No mass. Kidneys and ureters: Unremarkable. No solid mass. No hydronephrosis. Stomach and bowel: Unremarkable. No obstruction. No mucosal thickening. PELVIS: Appendix: No findings to suggest acute appendicitis. Bladder: Unremarkable. No mass. Reproductive: Unremarkable as visualized. ABDOMEN and PELVIS: Intraperitoneal space: Unremarkable. No free air. No significant fluid collection. Bones/joints: No acute fracture. No dislocation. Soft tissues: Unremarkable. Vasculature: Unremarkable. No abdominal aortic aneurysm. Lymph nodes: Unremarkable. No enlarged lymph nodes. IMPRESSION: No acute traumatic abnormality in the abdomen or pelvis. Electronically signed by: Daryl Jackson MD 05/14/23 21:[address] 05/14/23 19:12 Exam(s): CT FACIAL Without Contrast EXAM: CT Maxillofacial Without Intravenous Contrast CLINICAL HISTORY: Reason for exam: fall/facial bruising/etoh. TECHNIQUE: Axial computed tomography images of the face without intravenous contrast. CTDI is 37.69 mGy and DLP is 624.41 mGy-cm. Automated exposure control was utilized for the study. A dose lowering technique was utilized adhering to the principles of ALARA. COMPARISON: None. FINDINGS: Bones/joints: No acute fracture. Degenerative change in the spine. Soft tissues: Unremarkable. Orbits: Unremarkable. Sinuses: Unremarkable. No air-fluid levels. IMPRESSION: No acute facial fracture. Electronically signed by: Daryl Jackson MD 05/14/23 21:[address] 05/14/23 19:12 Exam(s): CT HEAD Without Contrast EXAM: CT Head Without Intravenous Contrast CLINICAL HISTORY: Reason for exam: facial bruising/fall/etoh. TECHNIQUE: Axial computed tomography images of the head/brain without intravenous contrast. CTDI is 14.52 mGy and DLP is 788.21 mGy-cm. Automated exposure control was utilized for the study. A dose lowering technique was utilized adhering to the principles of ALARA. COMPARISON: None. FINDINGS: Brain: Posterior fossa jese cisterna magna versus arachnoid cyst. No hemorrhage. No significant white matter disease. Ventricles: Unremarkable. No ventriculomegaly. Bones/joints: Unremarkable. No acute fracture. Soft tissues: Unremarkable. Sinuses: Unremarkable as visualized. Mastoid air cells: Unremarkable as visualized. No mastoid effusion. IMPRESSION: No intracranial hemorrhage or other acute intracranial abnormality. Electronically signed by: Daryl Jackson MD 05/14/23 21:00 PM Diagnostic Findings EKG as per my interpretation :Rate 70, NSR, LAD, LSB, T wave abnormalities septal leads
[2023-05-14] MEDS ORDERED: GABAPENTIN 1200MG ALCOHOL WITHDRAWAL LOAD PO STA (22:20)
[2023-05-14] MEDS ORDERED: Ativan IV Alcohol Withdrawal--Active Protocol IV PRN (22:20)
[2023-05-14] MEDS ORDERED: LORazepam 2 MG/1 ML VIAL IV PRN ×3 (22:20)
[2023-05-14] MEDS ORDERED: ACETAMINOPHEN W/CODEINE #3 1 TAB PO PRN (22:23)
[2023-05-14 22:33] LABS: Influenza A virus by PCR Negative (Neg); Influenza B virus by PCR Negative (Neg); RSV by PCR Negative (Neg); SARS CoV2 RNA(COVID-19) Ceph NEGATIVE (Negative)
[2023-05-14] MEDS ORDERED: GABAPENTIN 600 MG TAB PO STA (22:34)
[2023-05-14 23:25] LABS: Appearance Urine Clear (Clear); Bacteria Urine Automated Negative (Negative); Bilirubin Urine Negative (Negative); Blood Urine Trace (Negative); Cast Urine Automated 0 /lpf (0-5); Color Urine Yellow; Glucose Urine UA Negative (Negative); Ketones Urine Negative (Negative); Leukocyte Esterase Urine Negative (Negative); Nitrite Urine Negative (Negative); Protein Urine Negative (Negative); RBC Urine Automated 0-4 /hpf (0-4); Specific Gravity Urine 1.022 (1.000-1.030); Urobilinogen Urine Negative (Negative); pH Urine 5.5 (4.5-7.5)
--- NOTE | 2023-05-14 23:33 | Ultrasound Report ---
Exam(s): US VENOUS LEFT LOWER EXTREMITY EXAM: US Duplex Left Lower Extremity Veins CLINICAL HISTORY: Reason for exam: pain. TECHNIQUE: Real-time duplex ultrasound scan of the left lower extremity veins integrating B-mode two-dimensional vascular structure, Doppler spectral analysis, color flow Doppler imaging and compression. COMPARISON: None. FINDINGS: Deep veins: Unremarkable. No DVT in the visualized common femoral, femoral, proximal deep femoral or popliteal veins. The veins demonstrate normal color flow, are normally compressible, with normal phasic flow and/or augmentation response. Superficial veins: Unremarkable. No thrombus in the visualized great saphenous vein. Soft tissues: No acute findings. No popliteal cyst. IMPRESSION: No evidence of deep vein thrombosis in the left lower extremity. Electronically signed by: Daryl Jackson MD 05/14/23 23:32 PM
[2023-05-15 00:27] LABS: Amphetamines+Metham, Urine Neg (Neg); Barbiturates, Urine Neg (Neg); Benzodiazepine, Urine Pos (Neg); Cocaine, Urine Neg (Neg); MDMA (Ecstacy), Urine Neg (Neg); Methadone, Urine Neg (Neg); Opiate, Urine Neg (Neg); Phencyclidine, Urine Neg (Neg)
[2023-05-15] MEDS ORDERED: MELATONIN 3 MG TAB PO PRN (01:10)
[2023-05-15] MEDS: GABAPENTIN 600 MG TAB PO SCH ×3 (06:23→20:14)
[2023-05-15 07:01] LABS: Basophils # (auto) 0.05 K/uL (0-0.2); Basophils % (auto) 1.1 %; Eosinophils % (auto) 2.3 %; Hematocrit (blood only) 33.3 % (37.0-47.0); Hemoglobin 11.5 g/dl (12.0-16.0); Immature Granulocytes # (auto) 0.01 K/uL (0.01-0.20); Immature Granulocytes % (auto) 0.2 %; Lymphocytes # (auto) 1.25 K/uL (1.2-3.4); Lymphocytes % (auto) 28.7 %; Mean Corpuscular Hemoglobin 33.5 pg (25.0-34.0); Mean Corpuscular Hgb Conc 34.5 g/dL (32.0-36.0); Mean Corpuscular Volume 97.1 fL (80.0-100.0); Monocytes # (auto) 0.88 K/uL (0.11-0.59); Monocytes % (auto) 20.2 %; Neutrophils # (auto) 2.07 K/uL (1.40-6.50); Neutrophils % (auto) 47.5 %; Platelet Count 138 K/uL (130-400); RDW Coefficient of Variation 12.1 % (11.5-14.5); RDW Standard Deviation 43.1 fL (36.4-46.3); Red Blood Count 3.43 M/uL (4.20-5.40); White Blood Count 4.36 K/ul (4.8-10.8)
--- NOTE | 2023-05-15 07:10 | XRay Report ---
XR femur LT 2V routine CLINICAL HISTORY: pain, hx fall COMPARISON: CT of the abdomen and pelvis May 14, 2023 at 8:15 PM. FINDINGS: Incidental note is made of contrast within the bladder from recent contrast-enhanced CT. T here is no fracture within the left femur. Alignment of the left hip and left knee is anatomic. There is no left knee joint effusion. No fracture is identified within visualized portions of the pelvis. IMPRESSION: No fracture within the left femur. ACT 112: Negative or not required by law. Electronically signed by: Isiah Mathis M.D. 05/15/2023 7:09 AM
[2023-05-15 07:21] LABS: Albumin Globulin Ratio 1.4 (0.9-2); Albumin Level 3.8 gm/dl (3.4-5.0); BUN Creatinine Ratio 13.8 (10-20); Bilirubin,Total 1.3 mg/dl (0.2-1.0); Calcium 8.6 mg/dl (8.6-10.3); Creatinine Clr Calc Pharmacy 83.7 ml/min; Est GFR (African American) 121.7 ml/min; Globulin 2.8 gm/dl (2.5-4.0); Magnesium 2.1 mg/dl (1.7-2.4); Potassium 3.9 mmol/L (3.5-5.1); Total Protein 6.6 gm/dl (6.0-8.3)
[2023-05-15] MEDS ORDERED: amLODIPine BESYLATE 5 MG TAB PO SCH (09:00)
[2023-05-15] MEDS: ACETAMINOPHEN 325 MG TAB PO SCH ×4 (09:52→20:14)
[2023-05-15] MEDS: SERTRALINE HCL 50 MG TABLET PO SCH (09:53)
[2023-05-15] MEDS: PANTOprazole 40 MG TAB PO SCH (09:53)
--- NOTE | 2023-05-15 10:57 | Electrocardiogram Report ---
Test Reason : Blood Pressure : / mmHG Vent. Rate : 070 BPM Atrial Rate : 070 BPM P-R Int : 140 ms QRS Dur : 088 ms QT Int : 498 ms P-R-T Axes : 056 -25 028 degrees QTc Int : 537 ms Normal sinus rhythm Prolonged QT Abnormal ECG No previous ECGs available Confirmed by Ramirez Castelan ([id number]) on 05/15/2023 10:57:20 AM Referred By: REFERRED SELF Confirmed By:Ramirez Castelan
[2023-05-15] MEDS: CYANOCOBALAMIN (B-12) 500 MCG TABLET PO SCH (13:01)
[2023-05-15] MEDS: MULTIVITAMIN TAB PO SCH (13:01)
[2023-05-15] MEDS: FOLIC ACID 1 MG TAB PO SCH (13:01)
[2023-05-15] MEDS: THIAMINE HCL 100 MG TAB PO SCH (13:01)
--- NOTE | 2023-05-15 15:20 | Hospitalist Progress Note ---
Date of Service May 15, 2023 Assessment & Plan (1) Hallucinations: Plan: History of ALCOHOL abuse and was in [facility] for voluntary alcohol rehab program Has been complaining of hallucinations and was brought into the emergency room Remains very lethargic and sleepy and minimally communicative Has been better with wakefulness since admission If hallucination persist may need to be seen by psychiatrist (2) Alcohol withdrawal: Plan: Hallucination could be secondary to alcoholism/withdrawal Has significant tremors involving the outstretched hands Has been on gabapentin protocol One-to-one sitter Like to do go back to [place] following stability (3) Alcohol abuse: Plan: Has been on oral thiamine and folic acid Other significant medical conditions as below and are stable Status post fall as per the patient CT head, CT of the face, CT of the abdomen and pelvis and x-ray of the femur- unremarkable Ultrasound of the left leg did not show any DVT HTN, BP on the lower side Has been on amlodipine which is on hold for blood pressure on the lower side Can be restarted when the blood pressure is elevated GERD on PPI No acute symptoms Chronic back pain Left thigh pain rule out bony injury given recent fall as per patient account Anxiety/mood disorder Continue sertraline Anemia, unknown duration Hemoglobin minimally low at 11.5 DVT prophylaxis. SCDs for now until bony injury ruled out from left femur x-ray Full code Admission and Anticipated Discharge Date Admission Date: May 14, 2023 Subjective 05/15/2023 The patient was seen and examined in telemetry unit She remains lethargic,sleepy and shaky Denies any chest pain, shortness of breath, palpitation, any abdominal pain, nausea and or vomiting Still under one-to-one sitter Review of Systems Review of Systems: Unobtainable due to cognitive status Physical Exam Physical Exam: Lying in bed without any acute distress Constitutional: + ill appearing and average body habitus Eyes: PERRL, conjunctivae normal, anicteric sclerae ENMT: external ear and nose normal, oropharynx normal Neck: trachea midline, no thyromegaly Respiratory: no respiratory distress Auscultation: lungs clear to auscultation bilaterally Cardiovascular: Rate/Rhythm: regular rate and regular rhythm; not tachycardic Heart Sounds: normal S1 and normal S2; no murmur Extremities: no edema Gastrointestinal (Abdomen): Inspection/Auscultation: normal bowel sounds; abdomen not distended Percussion/Palpation: abdomen soft; abdomen nontender Musculoskeletal: No acute arthritis involving any joint Neurologic: Alert and awake. Minimally communicative. Moves all extremities. Has significant tremors involving the outstretched hands Lymphatic: no cervical or axillary lymphadenopathy Results & Data Results & Data Vital Signs (Past 12 Hours) Vital Signs Temp Pulse Resp BP Pulse Ox O2 Del Method 05/15/23 11:08 37.1 C 64 16 110/73 98 Room Air 05/15/23 07:19 36.9 C 61 16 114/78 95 Room Air 05/15/23 04:39 36.8 C 62 18 109/74 97 Room Air Laboratory Results Short CBC 05/14/23 05/15/23 Range/Units 19:20 05:58 WBC 6.02 4.36 L (4.8-10.8) K/ul Hgb 11.3 L 11.5 L (12.0-16.0) g/dl Hct 31.9 L 33.3 L (37.0-47.0) % Plt Count 152 138 (130-400) K/uL BMP 05/14/23 05/15/23 19:20 05:58 Sodium 133 L 141 Potassium 3.1 L 3.9 D Chloride 99 108 H Carbon Dioxide 21 24 BUN 16 9 Creatinine 1.01 0.65 D Glucose 80 83 Calcium 9.1 8.6 Liver Function 05/14/23 05/15/23 Range/Units 19:20 05:58 Total Bilirubin 1.3 H 1.3 H (0.2-1.0) mg/dl AST 75 H 66 H (13-39) U/L ALT 37 33 (7-52) U/L Alkaline Phosphatase 34 30 L (34-104) U/L Albumin 4.5 3.8 (3.4-5.0) gm/dl Urine 05/14/23 Range/Units 23:03 Urine Color Yellow Urine Appearance Clear (Clear) Urine pH 5.5 (4.5-7.5) Ur Specific [place] 1.022 (1.000-1.030) Urine Protein Negative (Negative) Urine Glucose (UA) Negative (Negative) Medications Administered Current Inpatient Medications Acetaminophen (Acetaminophen 325 Mg Tab) 650 mg PO QID ALDA Stop: 06/14/23 08:59 Last Admin: 05/15/23 13:01 Dose: Not Given Acetaminophen/Codeine Phosphate (Acetaminophen W/Codeine #3 1 Tab) 1 tab PO QID PRN PRN Reason: pain not relieved by tylenol Stop: 06/13/23 22:22 Cyanocobalamin (Cyanocobalamin (B-12) 500 Mcg Tablet) 1,000 mcg PO DAILY ALDA Stop: 06/14/23 08:59 Last Admin: 05/15/23 13:01 Dose: Not Given Folic Acid (Folic Acid 1 Mg Tab) 1 mg PO DAILY ALDA Stop: 06/14/23 08:59 Last Admin: 05/15/23 13:01 Dose: Not Given Gabapentin (Gabapentin 600 Mg Tab) 600 mg PO Q24H ALDA Stop: 05/18/23 12:01 Gabapentin (Gabapentin 600 Mg Tab) 600 mg PO Q12H ALDA Stop: 05/17/23 12:01 Gabapentin (Gabapentin 600 Mg Tab) 600 mg PO Q8H ALDA Stop: 05/16/23 12:01 Lorazepam (Lorazepam 2 Mg/1 Ml Vial) 2 mg IV UD PRN; Protocol PRN Reason: EtOH Withdrawal AWSS Score 8,9 Stop: 06/13/23 22:19 Last Admin: 05/15/23 00:42 Dose: 2 mg Lorazepam (Lorazepam 2 Mg/1 Ml Vial) 1 mg IV UD PRN; Protocol PRN Reason: EtOH Withdrawal AWSS Score 6,7 Stop: 06/13/23 22:19 Melatonin (Melatonin 3 Mg Tab) 4.5 mg PO HSZ PRN PRN Reason: Sleep Stop: 06/14/23 01:09 Multivitamins (Multivitamin Tab) 1 tab PO QAM ALDA Stop: 06/14/23 08:59 Last Admin: 05/15/23 13:01 Dose: Not Given Pantoprazole Sodium (Pantoprazole 40 Mg Tab) 40 mg PO DAILY ALDA Stop: 06/14/23 08:59 Last Admin: 05/15/23 09:53 Dose: 40 mg Sertraline HCl (Sertraline Hcl 50 Mg Tablet) 50 mg PO DAILY ALDA Stop: 06/14/23 08:59 Last Admin: 05/15/23 09:53 Dose: 50 mg Thiamine HCl (Thiamine Hcl 100 Mg Tab) 100 mg PO DAILY [facility] Stop: 06/14/23 08:59 Last Admin: 05/15/23 13:01 Dose: Not Given
[2023-05-16] MEDS: GABAPENTIN 600 MG TAB PO SCH ×4 (04:09→22:32)
[2023-05-16 06:40] LABS: Basophils # (auto) 0.08 K/uL (0-0.2); Eosinophils # (auto) 0.12 K/uL (0-0.50); Hematocrit (blood only) 34.7 % (37.0-47.0); Hemoglobin 11.9 g/dl (12.0-16.0); Immature Granulocytes # (auto) 0.01 K/uL (0.01-0.20); Immature Granulocytes % (auto) 0.2 %; Lymphocytes # (auto) 1.43 K/uL (1.2-3.4); Lymphocytes % (auto) 35.4 %; Mean Corpuscular Hemoglobin 33.1 pg (25.0-34.0); Mean Corpuscular Hgb Conc 34.3 g/dL (32.0-36.0); Mean Corpuscular Volume 96.4 fL (80.0-100.0); Mean Platelet Volume 9.6 fL (9.4-12.4); Monocytes # (auto) 0.71 K/uL (0.11-0.59); Monocytes % (auto) 17.6 %; Neutrophils # (auto) 1.69 K/uL (1.40-6.50); Neutrophils % (auto) 41.8 %; Platelet Count 159 K/uL (130-400); RDW Coefficient of Variation 11.9 % (11.5-14.5); RDW Standard Deviation 41.9 fL (36.4-46.3); White Blood Count 4.04 K/ul (4.8-10.8)
[2023-05-16 06:53] LABS: BUN Creatinine Ratio 6.9 (10-20); Calcium 8.6 mg/dl (8.6-10.3); Creatinine Clr Calc Pharmacy 93.8 ml/min; Est GFR (African American) 126.3 ml/min; Magnesium 1.5 mg/dl (1.7-2.4); Potassium 3.5 mmol/L (3.5-5.1)
[2023-05-16] MEDS: MULTIVITAMIN TAB PO SCH (08:43)
[2023-05-16] MEDS: ACETAMINOPHEN 325 MG TAB PO SCH ×4 (08:43→22:32)
[2023-05-16] MEDS: CYANOCOBALAMIN (B-12) 500 MCG TABLET PO SCH (08:44)
[2023-05-16] MEDS: THIAMINE HCL 100 MG TAB PO SCH (08:45)
[2023-05-16] MEDS: PANTOprazole 40 MG TAB PO SCH (08:45)
[2023-05-16] MEDS: FOLIC ACID 1 MG TAB PO SCH (08:45)
[2023-05-16] MEDS: SERTRALINE HCL 50 MG TABLET PO SCH (08:45)
[2023-05-16 13:48] LABS: 7-Aminoclonaz, Confirm NEGATIVE ng/mL (<25); Hydro-Alp Ur, GC/MS NEGATIVE ng/mL (<25); Hydroxyethylflurazepam, Conf NEGATIVE ng/mL (<50); Hydroxymidazolam Ur, GC/MS NEGATIVE ng/mL (<50); Hydroxytriazolam NEGATIVE ng/mL (<50); Lorazepam, Ur GC/MS NEGATIVE ng/mL (<50); Nordiazepam, Confirm NEGATIVE ng/mL (<50); Oxazepam Ur, GC/MS NEGATIVE ng/mL (<50); Temazepam, Confirm 104 ng/mL (<50)
[2023-05-16] MEDS ORDERED: Nursing to Pharmacy Communication SCH (14:00)
[2023-05-16] MEDS ORDERED: LORazepam 2 MG/1 ML VIAL IV STA (14:07)
[2023-05-16] MEDS ORDERED: LORazepam 0.5 MG TAB PO PRN (14:08)
--- NOTE | 2023-05-16 15:54 | Hospitalist Progress Note ---
Date of Service May 16, 2023 Assessment & Plan (1) Hallucinations: Plan: Per previous hospitalist notes with addendum: History of ALCOHOL abuse and was in [facility] for voluntary alcohol rehab program Has been complaining of hallucinations and was brought into the emergency room Remains very lethargic and sleepy and minimally communicative Has been better with wakefulness since admission If hallucination persist may need to be seen by psychiatrist 05/16 Resolving Monitor closely Management of alcohol withdrawal problem (2) Alcohol withdrawal: Plan: Hallucination could be secondary to alcoholism/withdrawal Has significant tremors involving the outstretched hands Has been on gabapentin protocol One-to-one sitter Like to do go back to [place] following stability 05/16 ALDO score 3-4 Continue gabapentin protocol, including as needed Ativan As needed Ativan 0.5 p.o. for anxiety ordered Monitor closely Anticipate return to [facility] alcohol rehab facility once medically stable (3) Alcohol abuse: Plan: Has been on oral thiamine and folic acid Other significant medical conditions as below and are stable Status post fall as per the patient CT head, CT of the face, CT of the abdomen and pelvis and x-ray of the femur- unremarkable Ultrasound of the left leg did not show any DVT HTN, BP on the lower side Has been on amlodipine which is on hold for blood pressure on the lower side Can be restarted when the blood pressure is elevated --- BP stable at this point GERD on PPI No acute symptoms Chronic back pain Left thigh pain rule out bony injury given recent fall as per patient account IMPRESSION: No fracture within the left femur. Anxiety/mood disorder Continue sertraline Anemia, unknown duration Hemoglobin minimally low at 11.5 DVT prophylaxis. SCDs Full code Admission and Anticipated Discharge Date Admission Date: May 14, 2023 Subjective ff up for alcohol withdrawal, etc Patient had tremors overnight, requiring lorazepam 2 mg IV seen with 1:1 sitter at bedside Sitting up in bed, comfortable, states she feels fine overall Positive mild tremors, but no hallucinations, sweats, confusion Denies suicidal ideations, depression or anxiety symptoms at this point no other symptoms Review of Systems Review of Systems: all noted and negative except for above Physical Exam Physical Exam: General- oriented x 3, not in distress, speaks in sentences with no effort or accessory muscle use Eyes- anicteric Neck- no JVD Lungs- clear breath sounds bilaterally, no rales/wheezes Heart- normal rate, regular rhythm; no murmurs Abdomen- normal bowel sounds, nondistended, soft, nontender Extremities- no pretibial edema, no calf tenderness Positive mild tremors Neuro- alert, oriented x 3; no gross focal neurologic deficits Skin- warm & dry Results & Data Results & Data Vital Signs (Past 12 Hours) Vital Signs Temp Pulse Pulse Resp BP Pulse Ox O2 Del Method 05/16/23 15:00 67 05/16/23 12:01 36.8 C 67 18 127/84 98 Room Air 05/16/23 08:22 60 05/16/23 08:22 Room Air 05/16/23 06:55 36.6 C 72 18 129/89 96 Room Air all noted and reviewed including below
[2023-05-17 06:47] LABS: Basophils # (auto) 0.07 K/uL (0-0.2); Basophils % (auto) 1.6 %; Eosinophils # (auto) 0.09 K/uL (0-0.50); Hematocrit (blood only) 34.5 % (37.0-47.0); Hemoglobin 12.2 g/dl (12.0-16.0); Immature Granulocytes # (auto) 0.01 K/uL (0.01-0.20); Immature Granulocytes % (auto) 0.2 %; Lymphocytes # (auto) 1.44 K/uL (1.2-3.4); Lymphocytes % (auto) 32.1 %; Mean Corpuscular Hemoglobin 32.9 pg (25.0-34.0); Mean Corpuscular Hgb Conc 35.4 g/dL (32.0-36.0); Mean Platelet Volume 9.5 fL (9.4-12.4); Monocytes # (auto) 0.97 K/uL (0.11-0.59); Monocytes % (auto) 21.6 %; Neutrophils # (auto) 1.91 K/uL (1.40-6.50); Neutrophils % (auto) 42.5 %; Platelet Count 174 K/uL (130-400); RDW Coefficient of Variation 11.8 % (11.5-14.5); RDW Standard Deviation 39.8 fL (36.4-46.3); Red Blood Count 3.71 M/uL (4.20-5.40); White Blood Count 4.49 K/ul (4.8-10.8)
[2023-05-17 07:06] LABS: BUN Creatinine Ratio 6.2 (10-20); Calcium 8.9 mg/dl (8.6-10.3); Creatinine Clr Calc Pharmacy 83.7 ml/min; Est GFR (African American) 121.7 ml/min
[2023-05-17] MEDS: ACETAMINOPHEN 325 MG TAB PO SCH ×2 (08:35→12:53)
[2023-05-17] MEDS: CYANOCOBALAMIN (B-12) 500 MCG TABLET PO SCH (08:36)
[2023-05-17] MEDS: FOLIC ACID 1 MG TAB PO SCH (08:36)
[2023-05-17] MEDS: SERTRALINE HCL 50 MG TABLET PO SCH (08:36)
[2023-05-17] MEDS: PANTOprazole 40 MG TAB PO SCH (08:36)
[2023-05-17] MEDS: MULTIVITAMIN TAB PO SCH (08:36)
[2023-05-17] MEDS: THIAMINE HCL 100 MG TAB PO SCH (08:37)
[2023-05-17] MEDS ORDERED: POTASSIUM CHLORIDE CRTAB 20 MEQ TABCR PO STA (08:49)
--- NOTE | 2023-05-17 10:42 | Hospitalist Progress Note ---
Date of Service May 17, 2023 delayed entry date of service noted above Assessment & Plan (1) Hallucinations: Plan: Per previous hospitalist notes with addendum: History of ALCOHOL abuse and was in [facility] for voluntary alcohol rehab program Has been complaining of hallucinations and was brought into the emergency room Remains very lethargic and sleepy and minimally communicative Has been better with wakefulness since admission If hallucination persist may need to be seen by psychiatrist 05/17 Resolved Continue 2 more doses of gabapentin as part of alcohol withdrawal protocol gabapentin taper (2) Alcohol withdrawal: Plan: Hallucination could be secondary to alcoholism/withdrawal Has significant tremors involving the outstretched hands Has been on gabapentin protocol One-to-one sitter Like to do go back to [place] following stability 05/17 Symptoms resolved Continue 2 more doses of gabapentin as part of alcohol withdrawal protocol gabapentin taper As needed Ativan 0.5 p.o. for anxiety ordered Return to [facility] [facility] alcohol rehab facility (3) Alcohol abuse: Plan: Has been on oral thiamine and folic acid Other significant medical conditions as below and are stable Status post fall as per the patient CT head, CT of the face, CT of the abdomen and pelvis and x-ray of the femur- unremarkable Ultrasound of the left leg did not show any DVT HTN --- BP stable at this point, does not recommend resuming amlodipine Monitor blood pressure closely GERD on PPI No acute symptoms Chronic back pain Left thigh pain rule out bony injury given recent fall as per patient account IMPRESSION: No fracture within the left femur. Anxiety/mood disorder Continue sertraline Anemia, unknown duration Hemoglobin minimally low at 11.5 DVT prophylaxis. SCDs Full code Admission and Anticipated Discharge Date Admission Date: May 14, 2023 Subjective Follow-up for hallucinations, alcohol withdrawal, etc. Seen with DIRECTOR CHILD at the bedside, one-to-one sitter throughout whole encounter Resting in bed, sitting up, not in distress, in good spirits States she feels fine overall Denies recurrence of hallucinations, no anxiety, tremors, palpitations, dizziness No other new symptoms States she is [facility] Later in the morning, notified by RN that patient was tearful, after conversation with her , and requesting psychiatry service evaluation Requested psychiatric liaison to evaluate patient Patient cleared by psychiatry service to return to [facility] for further inpatient psychiatric care Review of Systems Review of Systems: all noted and negative except for above Physical Exam Physical Exam: General- oriented x 3, not in distress, speaks in sentences with no effort or accessory muscle use Eyes- anicteric Neck- no JVD Lungs- clear breath sounds bilaterally, no rales/wheezes Heart- normal rate, regular rhythm; no murmurs Abdomen- normal bowel sounds, nondistended, soft, nontender Extremities- no pretibial edema, no calf tenderness Neuro- alert, oriented x 3; no gross focal neurologic deficits Skin- warm & dry Results & Data Results & Data Vital Signs (Past 12 Hours) Vital Signs Temp Pulse Pulse Resp BP BP Pulse Ox 05/17/23 07:35 36.8 C 71 18 128/70 93 05/17/23 07:22 63 05/17/23 03:35 37 C 63 16 124/82 97 05/16/23 23:08 37 C 61 16 133/87 97 O2 Del Method 05/17/23 07:35 Room Air 05/17/23 07:22 05/17/23 03:35 Room Air 05/16/23 23:08 Room Air all noted and reviewed including below
[2023-05-17] MEDS: GABAPENTIN 600 MG TAB PO SCH ×2 (11:57→12:06)
--- NOTE | 2023-05-18 08:20 | Psychiatric Consultation ---
Date of Consultation May 18, 2023 Impression / Recommendations Impression Patient discharged back to her residential substance use treatment facility before consult able to occur. She was seen by psychiatric liason and deemed stable and appropriate to return for treatment at [facility]. She has outpatient psychiatry and therapy services in place. Psych History Allergies Allergy/AdvReac Type Severity Reaction Status Date / Time celecoxib [From Celebrex] Allergy Rash Verified 05/14/23 18:56 Home Medications Medication Instructions Recorded Confirmed Type acetaminophen 650 mg tablet 650 mg PO QID pain 05/14/23 05/14/23 History clonidine HCl 0.1 mg tablet 0.1 mg PO TID PRN Anxiety 05/14/23 05/14/23 History cyanocobalamin (vitamin B-12) 1,000 mcg PO DAILY 05/14/23 05/14/23 History 1,000 mcg tablet (Vitamin B-12) diazepam 10 mg tablet (Valium) 10 mg PO DIRECTED PRN 05/14/23 05/14/23 History Withdrawal Symptoms dicyclomine 20 mg tablet 20 mg PO TID PRN Abdominal 05/14/23 05/14/23 History Discomfort diphenhydramine HCl 25 mg capsule 25 mg PO Q6 PRN as directed 05/14/23 05/14/23 History (Benadryl) folic acid 1 mg tablet 1 mg PO DAILY 05/14/23 05/14/23 History haloperidol 2 mg tablet 1 mg PO TID 05/14/23 05/14/23 History hydroxyzine pamoate 50 mg capsule 50 mg PO TID PRN Anxiety 05/14/23 05/14/23 History (Vistaril) ibuprofen 600 mg tablet 600 mg PO DAILY PRN Pain 05/14/23 05/14/23 History melatonin 5 mg tablet 5 mg PO HS PRN Sleep 05/14/23 05/14/23 History multivitamin See Rx Instructions .Route .COMPLEX 05/14/23 05/14/23 History norethindrone (contraceptive) 0.35 0.5 mg PO DAILY 05/14/23 05/14/23 History mg tablet ondansetron HCl 8 mg tablet 8 mg PO TID PRN Nausea 05/14/23 05/14/23 History pantoprazole 40 mg tablet,delayed 40 mg PO DAILY 05/14/23 05/14/23 History release (Protonix) sertraline 50 mg tablet (Zoloft) 50 mg PO DAILY 05/14/23 05/14/23 History thiamine HCl (vitamin B1) 100 mg 100 mg PO DAILY 05/14/23 05/14/23 History tablet (Vitamin B-1) Patient History Social History Smoking Status: Never smoker Hx Alcohol Use: Yes Preferred Language: Icelandic Communication Ability: Impaired Communication Ability Comment: unable to answer Beliefs That Will Affect Care: None Current Living Situation Comment: unable to answer Feels Safe at Home: Declines to Answer Physical Exam Vital Signs (Past 24 Hours): Last Vital Signs Temp 36.7 C 05/17/23 13:32 Pulse 63 05/17/23 13:32 Resp 18 05/17/23 13:32 BP 133/87 05/17/23 13:32 Pulse Ox 99 05/17/23 13:32 O2 Del Method Room Air 05/17/23 11:58 Coding Level of Care Code None Diagnoses
--- NOTE | 2023-05-20 17:21 | Discharge Summary ---
Discharge Summary Date of Service May 20, 2023 delayed entry date of service May 17, 2023 Notes For Next Care Provider Medication Changes From Visit Gabapentin 300 mg x 2 more doses Amlodipine discontinued Admission HPI Per Admitting Provider History obtained from patient and records. Medical history significant for HTN, GERD, chronic back pain, anxiety/mood disorder, alcohol abuse. Patient is a resident of [place] who was admitted at the local [facility] last week for voluntary alcohol rehab. Last EtOH drink was last week prior to [facility] admission. During stay at the [facility], patient with increasing hallucinations. Seeing her and dog in her room. Patient incompletely responsive to as needed Valium given at the facility. Patient denies headache, chest pain, SOB, abdominal pain. Complaining of left upper thigh pain. Possible fall as per patient. Patient brought to the ER for evaluation. Medical History as above Surgical History : None Family History : Heart disease,, DM, alcoholism Personal/Social history : Non-smoker, alcohol abuse, currently unemployed Admission Exam Per Admitting Provider GENERAL: Slightly uncomfortable, tremulous, oriented to month and year, no resp iratory distress SKIN: Normal color, warm HEENT: [place] palpebral conjunctivae, no ptosis, dry buccal mucosa NECK : Supple, no tenderness CHEST : CTA, no tenderness HEART : RRR, no obvious murmurs ABDOMEN: no distention, nontender EXTREMITIES : No LE swelling, minimal left thigh tenderness, no other conspicuous deformities noted NEUROLOGIC : Oriented to month and year, no facial asymmetry, tremulous, gait and stance not assessed Principal Dx & Hospital Course #1 = Principal Diagnosis (1) Hallucinations: Per previous hospitalist notes with addendum: History of ALCOHOL abuse and was in [facility] for voluntary alcohol rehab program Has been complaining of hallucinations and was brought into the emergency room Has been better with wakefulness since admission 05/17 Resolved Continue 2 more doses of gabapentin as part of alcohol withdrawal protocol gabapentin taper (2) Alcohol withdrawal: Hallucination could be secondary to alcoholism/withdrawal Has significant tremors involving the outstretched hands Has been on gabapentin protocol One-to-one sitter 05/17 Symptoms resolved Continue 2 more doses of gabapentin as part of alcohol withdrawal protocol gabapentin taper As needed Ativan 0.5 p.o. for anxiety ordered Return to [place] alcohol rehab facility (3) Alcohol abuse: Has been on oral thiamine and folic acid Other significant medical conditions as below and are stable Status post fall as per the patient CT head, CT of the face, CT of the abdomen and pelvis and x-ray of the femur- unremarkable Ultrasound of the left leg did not show any DVT HTN --- BP stable at this point, does not recommend resuming amlodipine Monitor blood pressure closely GERD on PPI No acute symptoms Chronic back pain Left thigh pain rule out bony injury given recent fall as per patient account IMPRESSION: No fracture within the left femur. Anxiety/mood disorder Continue sertraline Anemia, unknown duration Hemoglobin minimally low at 11.5 DVT prophylaxis. SCDs Full code Discharge Exam General- oriented x 3, not in distress, speaks in sentences with no effort or accessory muscle use Eyes- anicteric Neck- no JVD Lungs- clear breath sounds bilaterally, no rales/wheezes Heart- normal rate, regular rhythm; no murmurs Abdomen- normal bowel sounds, nondistended, soft, nontender Extremities- no pretibial edema, no calf tenderness Neuro- alert, oriented x 3; no gross focal neurologic deficits Skin- warm & dry Updated Medication List Medication Instructions Recorded Confirmed Type acetaminophen 650 mg tablet 650 mg PO QID pain 05/14/23 05/14/23 History clonidine HCl 0.1 mg tablet 0.1 mg PO TID PRN Anxiety 05/14/23 05/14/23 History cyanocobalamin (vitamin B-12) 1,000 mcg PO DAILY 05/14/23 05/14/23 History 1,000 mcg tablet (Vitamin B-12) diazepam 10 mg tablet (Valium) 10 mg PO DIRECTED PRN 05/14/23 05/14/23 History Withdrawal Symptoms dicyclomine 20 mg tablet 20 mg PO TID PRN Abdominal 05/14/23 05/14/23 History Discomfort diphenhydramine HCl 25 mg capsule 25 mg PO Q6 PRN as directed 05/14/23 05/14/23 History (Benadryl) folic acid 1 mg tablet 1 mg PO DAILY 05/14/23 05/14/23 History haloperidol 2 mg tablet 1 mg PO TID 05/14/23 05/14/23 History hydroxyzine pamoate 50 mg capsule 50 mg PO TID PRN Anxiety 05/14/23 05/14/23 History (Vistaril) ibuprofen 600 mg tablet 600 mg PO DAILY PRN Pain 05/14/23 05/14/23 History melatonin 5 mg tablet 5 mg PO HS PRN Sleep 05/14/23 05/14/23 History multivitamin See Rx Instructions .Route .COMPLEX 05/14/23 05/14/23 History norethindrone (contraceptive) 0.35 0.5 mg PO DAILY 05/14/23 05/14/23 History mg tablet ondansetron HCl 8 mg tablet 8 mg PO TID PRN Nausea 05/14/23 05/14/23 History pantoprazole 40 mg tablet,delayed 40 mg PO DAILY 05/14/23 05/14/23 History release (Protonix) sertraline 50 mg tablet (Zoloft) 50 mg PO DAILY 05/14/23 05/14/23 History thiamine HCl (vitamin B1) 100 mg 100 mg PO DAILY 05/14/23 05/14/23 History tablet (Vitamin B-1) Hospital Stay Data Consultations 05/17/23 11:46 Consult Psychiatry Routine Diagnostic Imagining Performed 05/14/23 19:12 CT abd pelvis IV con only Stat EXAM: CT Abdomen and Pelvis With Intravenous Contrast CLINICAL HISTORY: Reason for exam: etoh, left flank pain/bruising. TECHNIQUE: Axial computed tomography images of the abdomen and pelvis with intravenous contrast. CTDI is 11.71 mGy and DLP is 206.82 mGy-cm. Automated exposure control was utilized for the study. A dose lowering technique was utilized adhering to the principles of ALARA. CONTRAST: Patient received 95ml of IV contrast COMPARISON: None. FINDINGS: Lung bases: Bilateral dependent atelectasis. ABDOMEN: Liver: Unremarkable. No mass. Gallbladder and bile ducts: Unremarkable. No calcified stones. No ductal dilation. Pancreas: Unremarkable. No mass. No ductal dilation. Spleen: Unremarkable. No splenomegaly. Adrenals: Unremarkable. No mass. Kidneys and ureters: Unremarkable. No solid mass. No hydronephrosis. Stomach and bowel: Unremarkable. No obstruction. No mucosal thickening. PELVIS: Appendix: No findings to suggest acute appendicitis. Bladder: Unremarkable. No mass. Reproductive: Unremarkable as visualized. ABDOMEN and PELVIS: Intraperitoneal space: Unremarkable. No free air. No significant fluid collection. Bones/joints: No acute fracture. No dislocation. Soft tissues: Unremarkable. Vasculature: Unremarkable. No abdominal aortic aneurysm. Lymph nodes: Unremarkable. No enlarged lymph nodes. IMPRESSION: No acute traumatic abnormality in the abdomen or pelvis. Electronically signed by: Daryl Jackson MD 05/14/23 21:[address] face [CT facial bones wo con] Stat FINDINGS: Bones/joints: No acute fracture. Degenerative change in the spine. Soft tissues: Unremarkable. Orbits: Unremarkable. Sinuses: Unremarkable. No air-fluid levels. IMPRESSION: No acute facial fracture. CT head/brain wo con Stat FINDINGS: Brain: Posterior fossa jese cisterna magna versus arachnoid cyst. No hemorrhage. No significant white matter disease. Ventricles: Unremarkable. No ventriculomegaly. Bones/joints: Unremarkable. No acute fracture. Soft tissues: Unremarkable. Sinuses: Unremarkable as visualized. Mastoid air cells: Unremarkable as visualized. No mastoid effusion. IMPRESSION: No intracranial hemorrhage or other acute intracranial abnormality. 05/14/23 22:29 US venous doppler LE LT Stat FINDINGS: Deep veins: Unremarkable. No DVT in the visualized common femoral, femoral, proximal deep femoral or popliteal veins. The veins demonstrate normal color flow, are normally compressible, with normal phasic flow and/or augmentation response. Superficial veins: Unremarkable. No thrombus in the visualized great saphenous vein. Soft tissues: No acute findings. No popliteal cyst. IMPRESSION: No evidence of deep vein thrombosis in the left lower extremity. Pending Results Patient Have Any Pending Studies at Discharge: No Discharge Instructions Given to Patient (Per Discharging Provider) PLEASE REFER TO ACCOMPANYING HOSPITAL DISCHARGE SUMMARY FOR FURTHER DETAILS. Total Time Total Time Spent Total Time Spent (In Minutes): >30 minutes
== END 2023-05-17 13:46 | disposition alcohol treatment (31) | DRG 897 ==
LOC: ED 17:53 → SUATTDRO 22:18 → 2S 22:18